=== PATIENT | male | born 1985 | race Caucasian/White ===

== ENCOUNTER 2024-06-08 11:32 | Emergency (ER) | payer BC, SELFPAY ==
[2024-06-08 11:57] VITALS: BP 148/98; PULSE 92; RESP 16; TEMP 36.8; O2SAT 99
--- NOTE | 2024-06-08 12:00 | ED.EAR ---
HPI - Ear Problem General Chief complaint: Ear Stated complaint: EARACHE Time Seen by Provider: 06/08/24 12:00 Source: patient Mode of arrival: ambulatory Limitations: no limitations History of Present Illness HPI Narrative: Selvin is a 38-year-old male patient presenting to the clinic today with complaints of cerumen impaction in bilateral ears with some right-sided ear pain. Reports that he was trying to get the wax out yesterday using Q-tip and this has caused him some ear pain. Denies any drainage coming from the ear. Denies any other symptoms. Related Data Allergies Allergy/AdvReac Type Severity Reaction Status Date / Time Penicillins Allergy Mild Unverified 11/07/08 13:22 Review of Systems Review of Systems: Pertinent positives per HPI. Patient denies any fever, chills, rash, headache, visual changes, dizziness, cough, shortness of breath, chest pain, palpitations, nausea, vomiting, diarrhea, constipation, abdominal pain, or any urinary issues. PMFSH Comments At the time of my signature, I reviewed and agree with the nursing past medical, surgical, social, and family history. There is no relevant family history pertinent to the patient complaint. Exam Narrative: General: Well-developed, well nourished, in no apparent distress Head: Normocephalic, atraumatic Eyes: Pupils equally round and reactive to light bilaterally, EOM intact, sclera and conjunctive clear, no discharge, lids normal Ears: TMs intact and clear, ear canal impacted with cerumen, ear irrigation was performed and cerumen was removed completely from the left ear canal but some cerumen still remains in the right ear up against the TM, no drainage, grossly hearing normal. Nose: Nares patent, no discharge, no inflammation, no sinus tenderness. Mouth: Oral pharynx without lesions or masses, good dentition, MMM. Neck: Supple, trachea midline, no enlargement of anterior or posterior cervical nodes, no thyroid masses or goiter palpable. Cardio: Regular rate and rhythm, s1 and s2 normal, no murmur appreciated. Resp: Clear to auscultation bilaterally, no rhonchi, rales, wheezing or rubs Course Course Emergency Course: Portions of this record may have been created with voice recognition software. Level of Care: Express Care Visit Vital Signs Vital signs: Vital Signs Temperature 36.8 C 06/08/24 11:57 Pulse Rate 92 01/29/25 11:57 Respiratory Rate 16 06/08/24 11:57 Blood Pressure 148/98 H 06/08/24 11:57 Pulse Oximetry 99 06/08/24 11:57 Temperature 36.8 C 06/08/24 11:57 Pulse Rate 92 06/08/24 11:57 Respiratory Rate 16 06/08/24 11:57 Blood Pressure 148/98 H 06/08/24 11:57 Pulse Oximetry 99 06/08/24 11:57 Vital signs reviewed Procedures Other Procedure Procedure 1: Other Procedure: Verbal consent obtained for ear irrigation. Risk and benefits explained and patient voiced understanding. Ear irrigation performed using an elephant ear and spray water bottle. Mixture of 1/2 peroxide 1/2 water used to irrigate ear canal. Cerumen impaction cleared in the left ear canal but some cerumen still remains in the right ear canal, TM visualized without redness. Grossly hearing normal. Patient tolerated procedure well Medical Decision Making MDM Narrative Medical decision making narrative: At the time of visit patient is resting comfortably on the exam table. Patient appears to be nontoxic. Medications: Debrox 5 drops in each ear Procedures: Ear irrigation was performed-some cerumen still remains in the right ear canal however the left ear canal is clear Plan: Ear irrigation was performed. Patient tolerated well. Debrox drops was given to the patient. Supportive measures were discussed with the patient and they voiced understanding discharge instructions and agrees to treatment plan. Return precautions reviewed Differential Diagnosis Differential Diagnosis: Otitis media, otitis externa, eustachian tube dysfunction, cerumen impaction, upper respiratory infection, serous otitis Vital Signs Vital Signs: Vital Signs Temperature 36.8 C 06/08/24 11:57 Pulse Rate 92 06/08/24 11:57 Respiratory Rate 16 06/08/24 11:57 Blood Pressure 148/98 H 06/08/24 11:57 Pulse Oximetry 99 06/08/24 11:57 Temperature 36.8 C 06/08/24 11:57 Pulse Rate 92 06/08/24 11:57 Respiratory Rate 16 06/08/24 11:57 Blood Pressure 148/98 H 06/08/24 11:57 Pulse Oximetry 99 06/08/24 11:57 Discharge Plan Discharge Clinical Impression: Cerumen impaction Qualifiers: Laterality: bilateral Qualified Code(s): H61.23 - Impacted cerumen, bilateral Patient Disposition: Home, Self-Care Condition: Stable Instructions: Antibiotic Form, Earache (ED) Additional Instructions: Instill deborx drops in the right ear for 3 consecutive nights. May use warm water and peroxide mixture half and half to irrigate the right ear Follow-up with your primary care doctor as discussed Patient Language: Uz[place] Follow-up/Referrals: PHYSICIAN,INTERVENTIONAL TECHNOLOGIST [Primary Care Provider] - Time of Disposition: 13:29 Quality NIHSS Nursing Documentation ED NIHSS nursing documentation: reviewed/agree
[2024-06-08] MEDS: CARBAMIDE PEROXIDE 6.5% OT SOLN 15 ML BTL 5 DROP EACH EAR (12:08)
== END 2024-06-08 13:30 | disposition home or self-care (01) ==
PROVIDERS: Emergency Provider Nurse Practitioner Family
DX: H61.23 Impacted cerumen, bilateral (principal)
CPT/HCPCS: 69209; 99212; A9270; G0463